=== PATIENT | female | born 1960 | race Caucasian/White ===

== ENCOUNTER 2017-01-24 04:33 | Emergency (ER) | payer MEDICARE, MEDICAID ==
[~2017-01-24] VITALS: Ht 170.2 cm; Wt 83.3 kg
[~2017-01-24 04:33] MED LIST: ARIP10TA13 PO; ATIVAN; ESCI20TA10 PO; LEXAPRO; LORA-445 PO; OXYB5TAB7 PO; TRAZ50TA18 PO
[2017-01-24 04:35] VITALS: BP 115/74
[2017-01-24 05:43] LABS: BLOOD UREA NITROGEN 18 mg/dL (7-18)
[2017-01-24] MEDS ORDERED: FLUCONAZOLE 100 MG TABLET PO ONE (06:00)
== END 2017-01-24 07:22 | disposition home or self-care (01) ==
LOC: ED 04:38
DX: N30.00 Acute cystitis without hematuria (principal); B37.3 Candidiasis of vulva and vagina; Z90.710 Acquired absence of both cervix and uterus
CPT/HCPCS: 36415; 80048; 81001; 82040; 85025; 87077; 87086; 87186; 87210; 87491; 87591; 87808

== ENCOUNTER 2017-01-31 11:30 | Inpatient (IN) | payer MEDICARE, MEDICAID ==
[~2017-01-31] VITALS: Ht 170.2 cm; Wt 88.7 kg
[2017-01-31] MEDS ORDERED: SODIUM CHLORIDE 0.9% 1,000ML IVBOLUS ONE (12:30)
[2017-01-31] MEDS ORDERED: VANCOMYCIN PER PHARMACY MC ONE (12:30)
[2017-01-31] MEDS ORDERED: SODIUM CHLORIDE FLUSH 10ML SYR IVF ONE (12:30)
[2017-01-31] MEDS ORDERED: VANCOMYCIN 1,700 MG in SODIUM CHLORIDE 0.9% 250 ML IV ONE (12:32)
[2017-01-31 13:00] LABS: BLOOD UREA NITROGEN 10 mg/dL (7-18)
[2017-01-31] MEDS ORDERED: PHARMACOKINETIC CONSULTATION MC ONE (13:00)
[2017-01-31 13:01] LABS: ASPARTATE AMINO TRANSFERASE 17 U/L (15-37)
[2017-01-31] MEDS ORDERED: SODIUM CHLORIDE FLUSH 10ML SYR IVF PRN (14:00)
[2017-01-31] MEDS ORDERED: LORazepam 0.5MG TABLET PO PRN (14:30)
[2017-01-31] MEDS ORDERED: NS + 20MEQ KCL 1,000 ML IV SCH (14:51)
[2017-01-31 14:56] VITALS: BP 126/76
[2017-01-31] MEDS ORDERED: DOCUSATE 100 MG CAPSULE PO PRN (15:00)
[2017-01-31] MEDS ORDERED: VANCOMYCIN PER PHARMACY MC PRN (15:00)
[2017-01-31] MEDS ORDERED: ACETAMINOPHEN 325 MG TABLET PO PRN (15:00)
[2017-01-31] MEDS ORDERED: TEMAZEPAM 15 MG CAPSULE PO PRN (15:00)
[2017-01-31] MEDS ORDERED: CEFTAROLINE 600 MG in SODIUM CHLORIDE 0.9% 100 ML IV SCH (15:00)
[2017-01-31] MEDS ORDERED: hydrALAzine 20 MG/ML, 1ML IVPush PRN (15:00)
[2017-01-31] MEDS ORDERED: ONDANSETRON 2MG/ML, 2ML IVPush PRN (15:00)
[2017-01-31] MEDS ORDERED: HYDROcodone/APAP 5/325 TABLET PO PRN (15:00)
[2017-01-31] MEDS ORDERED: POTASSIUM CHLORIDE 20 MEQ TAB.ER.PRT PO ONE (15:00)
[2017-01-31] MEDS ORDERED: LORazepam 1MG TABLET PO PRN (15:00)
[2017-01-31] MEDS ORDERED: PHARMACOKINETIC MONITORING MC PRN (15:30)
[2017-01-31] MEDS: ENOXAPARIN 40 MG/0.4 ML SQ SCH (17:42)
[2017-01-31] MEDS: CEFTRIAXONE PMX 2GM/50ML 50 ML IVPB SCH (17:42)
[2017-01-31 19:29] VITALS: BP 115/69
[2017-01-31] MEDS: OXYBUTYNIN CHLORIDE 5 MG TABLET PO SCH (21:15)
[2017-01-31] MEDS: TRAZODONE 100MG TABLET PO SCH (21:15)
[2017-02-01] MEDS: VANCOMYCIN 1,600 MG in SODIUM CHLORIDE 0.9% 250 ML IV SCH ×2 (00:50→12:36)
[2017-02-01 02:45] VITALS: BP 112/75
[2017-02-01 06:46] VITALS: BP 107/70
[2017-02-01 07:31] LABS: ASPARTATE AMINO TRANSFERASE 14 U/L (15-37); BLOOD UREA NITROGEN 9 mg/dL (7-18)
[2017-02-01] MEDS: CITALOPRAM 20 MG TABLET PO SCH (09:00)
[2017-02-01] MEDS: ARIPIPRAZOLE 10 MG TABLET PO SCH (09:01)
[2017-02-01] MEDS: SILVER SULF. CRM 1% , 25GM TP SCH (09:02)
[2017-02-01] MEDS: OXYBUTYNIN CHLORIDE 5 MG TABLET PO SCH ×2 (09:02→20:04)
[2017-02-01 12:51] VITALS: BP 103/67
[2017-02-01] MEDS: ENOXAPARIN 40 MG/0.4 ML SQ SCH (18:00)
[2017-02-01] MEDS: CEFTRIAXONE PMX 2GM/50ML 50 ML IVPB SCH (18:04)
[2017-02-01 19:50] VITALS: BP 118/76
[2017-02-01] MEDS: TRAZODONE 100MG TABLET PO SCH (20:04)
[2017-02-02] MEDS: VANCOMYCIN 1,600 MG in SODIUM CHLORIDE 0.9% 250 ML IV SCH (00:37)
[2017-02-02 03:06] VITALS: BP 118/74
[2017-02-02 06:32] VITALS: BP 103/62
[2017-02-02] MEDS: SILVER SULF. CRM 1% , 25GM TP SCH (08:44)
[2017-02-02] MEDS: OXYBUTYNIN CHLORIDE 5 MG TABLET PO SCH (08:45)
[2017-02-02] MEDS: CITALOPRAM 20 MG TABLET PO SCH ×2 (08:45→08:46)
[2017-02-02] MEDS: ARIPIPRAZOLE 10 MG TABLET PO SCH (08:45)
[2017-02-02] MEDS ORDERED: AMOX1TAB64 PO ×2 (08:56→09:43)
[2017-02-02] MEDS ORDERED: SILV25CR4 TP ×2 (08:56→09:43)
[2017-02-02] MEDS ORDERED: ESCI20TA10 PO (08:56)
[2017-02-02] MEDS ORDERED: ARIP10TA13 PO (08:56)
[2017-02-02] MEDS ORDERED: CEPH-368 PO (14:59)
[2017-02-02] MEDS ORDERED: CLON0.5T PO (18:16)
[2017-02-02] MEDS ORDERED: TOPI50TA35 PO (18:16)
[2017-02-02] MEDS ORDERED: ZIPR80CA2 PO (18:16)
[2017-02-02] MEDS ORDERED: DIVA500T4 PO (18:16)
== END 2017-02-02 13:20 | disposition home or self-care (01) | DRG 602 ==
LOC: ED 12:53 → EDIP 13:39 → 3NE 14:46
PROVIDERS: ADMIT Hospitalist; ATTEND Hospitalist
DX: L03.115 Cellulitis of right lower limb (principal); G93.41 Metabolic encephalopathy; F31.9 Bipolar disorder, unspecified; E87.6 Hypokalemia; F20.9 Schizophrenia, unspecified; F22 Delusional disorders; F41.1 Generalized anxiety disorder; L55.9 Sunburn, unspecified; I50.9 Heart failure, unspecified; Z91.14 Patient's other noncompliance with medication regimen; Z88.8 Allergy status to other drugs, medicaments and biological substances; Z85.42 Personal history of malignant neoplasm of other parts of uterus; Z90.710 Acquired absence of both cervix and uterus
CPT/HCPCS: 36415; 71010; 80053; 83605; 83735; 83880; 84100; 84145; 84443; 85025; 87040; 93970; 96361; 96365; J0696; J3370; J3480; J7030; J7050

== ENCOUNTER 2017-02-02 16:14 | Observation (INO) | payer MEDICARE, MEDICAID ==
[~2017-02-02] VITALS: Ht 170.2 cm; Wt 88.7 kg
[~2017-02-02 16:14] MED LIST changes: +AMOX1TAB64 PO; +CEPH-368 PO; +SILV25CR4 TP
[2017-02-02] MEDS ORDERED: ZIPRASIDONE 20 MG INJ IM ONE ×2 (17:19→17:30)
[2017-02-02 17:59] LABS: BLOOD UREA NITROGEN 15 mg/dL (7-18)
[2017-02-02 18:01] LABS: ACETAMINOPHEN < 2 mcg/mL (10-30)
[2017-02-02] MEDS ORDERED: ZIPR80CA2 PO (18:16)
[2017-02-02] MEDS ORDERED: CLON0.5T PO (18:16)
[2017-02-02] MEDS ORDERED: TOPI50TA35 PO (18:16)
[2017-02-02] MEDS ORDERED: DIVA500T4 PO (18:16)
[2017-02-02 19:08] LABS: DAU SCREEN DISCLAIMER
[2017-02-02] MEDS ORDERED: DIPHENHYDRAMINE 50 MG CAPSULE PO PRN (20:30)
[2017-02-02] MEDS ORDERED: ACETAMINOPHEN 325 MG TABLET PO PRN (20:30)
[2017-02-02] MEDS ORDERED: LORazepam 2 MG/ML, 1ML IM PRN (20:30)
[2017-02-02] MEDS ORDERED: DOCUSATE 100 MG CAPSULE PO PRN (20:30)
[2017-02-02] MEDS ORDERED: BENZTROPINE 1 MG TABLET PO PRN (20:30)
[2017-02-02] MEDS ORDERED: ONDANSETRON ODT 4 MG PO PRN (20:30)
[2017-02-02] MEDS ORDERED: DIPHENHYDRAMINE 50 MG/ML, 1ML IM PRN (20:30)
[2017-02-02 21:10] VITALS: BP 122/73
[2017-02-02] MEDS: DIVALPROEX 500 MG TAB.ER.24H PO SCH (21:55)
[2017-02-02] MEDS: TOPIRAMATE 25 MG TABLET PO SCH (21:56)
[2017-02-02] MEDS: ZIPRASIDONE 40MG CAPSULE PO SCH (22:03)
[2017-02-03 07:13] VITALS: BP 121/78
[2017-02-03] MEDS: TOPIRAMATE 25 MG TABLET PO SCH ×2 (08:47→20:07)
[2017-02-03] MEDS: ZIPRASIDONE 40MG CAPSULE PO SCH ×2 (08:48→20:04)
[2017-02-03] MEDS: DIVALPROEX 500 MG TAB.ER.24H PO SCH ×2 (08:48→20:01)
[2017-02-03] MEDS ORDERED: AMOXICILLIN/CLAV 875-125MG TABLET PO SCH (12:00)
[2017-02-03 19:29] VITALS: BP 124/78
== END 2017-02-03 23:39 ==
LOC: ED 18:27 → EDIP 20:20 → 3E 21:06
PROVIDERS: ADMIT Internal Medicine; ATTEND Internal Medicine
DX: F23 Brief psychotic disorder (principal); S90.921A Unspecified superficial injury of right foot, initial encounter; L03.115 Cellulitis of right lower limb; F22 Delusional disorders; F31.9 Bipolar disorder, unspecified; R60.0 Localized edema; X58.XXXA Exposure to other specified factors, initial encounter; Y93.89 Activity, other specified; Y92.89 Other specified places as the place of occurrence of the external cause; Y99.8 Other external cause status
CPT/HCPCS: 36415; 80048; 80307; 80329; 82040; 85025; 99285; G0378; G0480

== ENCOUNTER 2017-05-02 00:15 | Observation (INO) | payer MEDICARE, MEDICAID ==
[~2017-05-02] VITALS: Ht 160 cm; Wt 79.0 kg
[~2017-05-02 00:15] MED LIST changes: -ARIP10TA13 PO; +ARIP10TA33 PO; +CLON0.5T PO; +DIVA500T4 PO; -SILV25CR4 TP; +SILV25CR6 TP; +TOPI50TA35 PO; +ZIPR80CA2 PO
[2017-05-02] MEDS ORDERED: ZIPRASIDONE 20 MG INJ IM ONE (00:52)
[2017-05-02] MEDS: ZIPRASIDONE 20 MG INJ IM PRN (01:02)
[2017-05-02 01:03] LABS: HEMATOCRIT 43.6 % (34.6-47.8); HEMOGLOBIN 14.7 g/dL (11.7-16.4); WHITE BLOOD COUNT 7.9 x10^3/uL (3.4-10)
[2017-05-02 01:15] LABS: ASPARTATE AMINO TRANSFERASE 33 U/L (15-37); BLOOD UREA NITROGEN 18 mg/dL (7-18)
[2017-05-02 01:26] LABS: ACETAMINOPHEN < 2 mcg/mL (10-30)
[2017-05-02 01:31] LABS: DAU SCREEN DISCLAIMER
[2017-05-02 01:51] LABS: PATH.CAST-FLAG NOT PRESENT; SPERM-FLAG NOT PRESENT; SRC-FLAG NOT PRESENT; XTAL-FLAG NOT PRESENT; YLC-FLAG NOT PRESENT
[2017-05-02] MEDS ORDERED: NITROFURANTOIN (MACROBID) 100 MG CAPSULE PO ONE (03:30)
[2017-05-02] MEDS ORDERED: DOCUSATE 100 MG CAPSULE PO PRN (05:30)
[2017-05-02] MEDS ORDERED: ONDANSETRON ODT 4 MG PO PRN (05:30)
[2017-05-02] MEDS ORDERED: ZIPRASIDONE 20 MG INJ IM PRN (05:30)
[2017-05-02] MEDS ORDERED: ACETAMINOPHEN 325 MG TABLET PO PRN (05:30)
[2017-05-02 06:19] VITALS: BP 108/71
[2017-05-02] MEDS ORDERED: DIVALPROEX 500 MG TAB.ER.24H PO SCH (09:00)
[2017-05-02] MEDS ORDERED: ZIPRASIDONE 40MG CAPSULE PO SCH (09:00)
[2017-05-02] MEDS ORDERED: TOPIRAMATE 25 MG TABLET PO SCH (09:00)
[2017-05-02] MEDS: NITROFURANTOIN (MACROBID) 100 MG CAPSULE PO SCH ×2 (09:21→21:45)
[2017-05-02 19:35] VITALS: BP 107/63
[2017-05-03] MEDS: NITROFURANTOIN (MACROBID) 100 MG CAPSULE PO SCH ×2 (07:26→19:56)
[2017-05-03] MEDS: ZIPRASIDONE 20MG CAPSULE PO PRN (07:27)
[2017-05-03 07:28] VITALS: BP 109/75
[2017-05-03 19:08] VITALS: BP 113/76
[2017-05-03] MEDS: DIVALPROEX 500 MG TAB.ER.24H PO SCH (19:56)
[2017-05-04] MEDS: LORazepam 1MG TABLET PO PRN (02:23)
[2017-05-04 08:10] VITALS: BP 120/81
[2017-05-04] MEDS: NITROFURANTOIN (MACROBID) 100 MG CAPSULE PO SCH ×2 (08:18→20:22)
[2017-05-04] MEDS: DIVALPROEX 500 MG TAB.ER.24H PO SCH (20:22)
[2017-05-05 07:46] VITALS: BP 113/69
[2017-05-05 19:22] VITALS: BP 130/85
[2017-05-05] MEDS: DIVALPROEX 500 MG TAB.ER.24H PO SCH ×2 (21:00→22:57)
[2017-05-06 07:24] VITALS: BP 114/80
[2017-05-06] MEDS ORDERED: ZIPRASIDONE 20 MG INJ IM PRN (19:00)
[2017-05-06] MEDS ORDERED: ONDANSETRON ODT 4 MG PO PRN (19:00)
[2017-05-06] MEDS ORDERED: DOCUSATE 100 MG CAPSULE PO PRN (19:00)
[2017-05-06] MEDS ORDERED: ACETAMINOPHEN 325 MG TABLET PO PRN (19:00)
[2017-05-06 19:22] VITALS: BP 129/89
[2017-05-06] MEDS: DIVALPROEX 500 MG TAB.ER.24H PO SCH (21:48)
[2017-05-07 08:09] VITALS: BP 112/63
[2017-05-07] MEDS: ZIPRASIDONE 20MG CAPSULE PO PRN (08:38)
[2017-05-07] MEDS: LORazepam 1MG TABLET PO PRN (08:39)
[2017-05-08 01:38] VITALS: BP 125/83
[2017-05-08 07:30] VITALS: BP 132/84
[2017-05-08 19:33] VITALS: BP 113/79
[2017-05-08] MEDS ORDERED: ARIPIPRAZOLE 10 MG TABLET PO SCH (21:00)
[2017-05-09 02:32] VITALS: BP 104/74
[2017-05-09] MEDS: LORazepam 1MG TABLET PO PRN (05:24)
[2017-05-09 08:00] VITALS: BP 121/80
[2017-05-09] MEDS ORDERED: DIVALPROEX 500 MG TAB.ER.24H PO SCH (09:00)
[2017-05-09] MEDS ORDERED: ARIP10TA33 PO (10:32)
[2017-05-09] MEDS ORDERED: DIVA500T4 PO (10:32)
== END 2017-05-09 10:30 ==
LOC: ED 01:24 → EDIP 03:37 → INTOOBSV 03:37 → 3E 06:04
PROVIDERS: ADMIT Family Medicine; ATTEND Internal Medicine
DX: F23 Brief psychotic disorder (principal); F25.0 Schizoaffective disorder, bipolar type; N20.0 Calculus of kidney; F20.9 Schizophrenia, unspecified; R62.7 Adult failure to thrive; Z85.42 Personal history of malignant neoplasm of other parts of uterus; Z90.710 Acquired absence of both cervix and uterus; Z91.83 Wandering in diseases classified elsewhere
CPT/HCPCS: 36415; 74176; 80053; 80164; 80307; 80329; 81001; 84702; 84703; 85025; 87086; 96372; 99285; G0378; J3486; G0479; G0480

== ENCOUNTER 2017-11-11 19:26 | Emergency (ER) | payer MEDICARE, MEDICAID ==
[~2017-11-11] VITALS: Ht 170.2 cm; Wt 90.4 kg
[2017-11-11 19:27] VITALS: BP 119/78
[2017-11-11 20:37] LABS: BASOPHILS # (AUTO) 0.06 x10^3/uL (0-0.1); BASOPHILS % (AUTO) 1 % (0-1); EOSINOPHILS # (AUTO) 0.16 x10^3/uL (0-0.4); EOSINOPHILS % (AUTO) 2 % (1-7); LYMPHOCYTES # (AUTO) 2.37 x10^3/uL (1-3.4); LYMPHOCYTES % (AUTO) 33 % (22-44); MD NO; MEAN CORPUSCULAR HEMOGLOBIN 30.5 pg (27.0-34.8); MEAN CORPUSCULAR HGB CONC 33.8 g/dL (32.4-35.8); MEAN CORPUSCULAR VOLUME 90.3 fL (80-100); MEAN PLATELET VOLUME 6.8 fL (7.4-10.4); MONOCYTES % (AUTO) 10 % (2-9); NEUTROPHILS # (AUTO) 3.82 x10^3/uL (1.8-6.8); NEUTROPHILS % (AUTO) 54 % (42-75); PLATELET COUNT 312 x10^3/uL (130-400); RED BLOOD COUNT 4.41 x10^6/uL (3.82-5.3); RED CELL DISTRIBUTION WIDTH 14.6 % (9.6-15.2)
[2017-11-11 20:45] LABS: ALANINE AMINOTRANSFERASE 25 U/L (12-78); ALBUMIN 3.3 g/dL (3.4-5.0); ANION GAP 6 mmol/L (5-15); CALCIUM 8.4 mg/dL (8.5-10.1); CHLORIDE 109 mmol/L (98-107); CREATININE 0.73 mg/dL (0.55-1.02)
[2017-11-11 20:50] LABS: ALKALINE PHOSPHATASE 94 U/L (45-117); BILIRUBIN,TOTAL 0.3 mg/dL (0.2-1.0); TOTAL PROTEIN 6.8 g/dL (6.4-8.2)
[2017-11-11 21:05] LABS: MICROSCOPIC NOT IND
[2017-11-11 21:09] LABS: CULTURE INDICATED? NO
== END 2017-11-11 21:58 | disposition home or self-care (01) ==
LOC: ED 21:56
DX: R14.0 Abdominal distension (gaseous) (principal); Z90.710 Acquired absence of both cervix and uterus
CPT/HCPCS: 36415; 76700; 80053; 81003; 83690; 84703; 85025; 99285

== ENCOUNTER 2018-11-16 15:14 | Emergency (ER) | payer MEDICARE, MEDICAID ==
[~2018-11-16] VITALS: Ht 170.2 cm; Wt 84.0 kg
[~2018-11-16 15:14] MED LIST changes: +HALO50AM4 IM; +HYDR25CA PO; +LORA-446 PO; +PALI156D IM; -TRAZ50TA18 PO; +TRAZ50TA66 PO
--- NOTE | 2018-11-16 15:20 | NUR ---
THIS IS A 57 YO FEMALE BIB [facility] FROM [facility] FOR HI THOUGHTS AGAINST HER NEIGHBOR WHO HAD AN AFFAIR WITH HER EX. PT STATES "EVERY FEW YEARS I NEED MY MEDICATIONS ADJUSTED FOR MY MENTAL ILLNESS". PT PLEASANT AND COOPERATIVE AT THIS TIME. BELONGINGS PLACED IN ONE BAG AND LOCKED IN LOCKER. PT ALSO HAS A CANE. PT AO X 4. SKIN. PWD RESP EVEN UNLABORED. PT DENIES ANY MEDICAL COMPLAINTS. GARAGE DOORS DOWN ON WORTHY. SITTER AT DOORSIDE.
[2018-11-16] MEDS ORDERED: DIPH25CA61 PO ×2 (16:13→16:15)
[2018-11-16] MEDS ORDERED: SERT50TA PO (16:13)
[2018-11-16] MEDS ORDERED: HALO50AM4 IM (16:15)
--- NOTE | 2018-11-16 16:31 | NUR ---
Note undone in [facility] - 11/16/18 at 1632 by MARILIN patient asleepy on gurney. devries provided. Addendum: 11/16/18 at 1631 by MARILIN Amendment [email or web address] in [facility] - 11/16/18 at 1632 by PAULCCO patient asleep on gurney. devries provided.
[2018-11-16 16:33] VITALS: BP 93/55
[2018-11-16 16:39] LABS: BASOPHILS # (AUTO) 0.01 x10^3/uL (0-0.1); BASOPHILS % (AUTO) 0 % (0-1); EOSINOPHILS # (AUTO) 0.05 x10^3/uL (0-0.4); EOSINOPHILS % (AUTO) 1 % (1-7); LYMPHOCYTES # (AUTO) 1.78 x10^3/uL (1-3.4); LYMPHOCYTES % (AUTO) 28 % (22-44); MD NO; MEAN CORPUSCULAR HEMOGLOBIN 29.8 pg (27.0-34.8); MEAN CORPUSCULAR HGB CONC 33.6 g/dL (32.4-35.8); MEAN CORPUSCULAR VOLUME 88.7 fL (80-100); MEAN PLATELET VOLUME 6.9 fL (7.4-10.4); MONOCYTES # (AUTO) 0.55 x10^3/uL (0.2-0.8); MONOCYTES % (AUTO) 9 % (2-9); NEUTROPHILS # (AUTO) 4.04 x10^3/uL (1.8-6.8); NEUTROPHILS % (AUTO) 63 % (42-75); PLATELET COUNT 365 x10^3/uL (130-400); RED BLOOD COUNT 4.85 x10^6/uL (3.82-5.3); RED CELL DISTRIBUTION WIDTH 13.7 % (9.6-15.2)
[2018-11-16 16:45] LABS: ALANINE AMINOTRANSFERASE 26 U/L (12-78); ALBUMIN 3.8 g/dL (3.4-5.0); ANION GAP 6 mmol/L (5-15); CHLORIDE 108 mmol/L (98-107); CREATININE 0.68 mg/dL (0.55-1.02)
[2018-11-16 16:47] LABS: ALKALINE PHOSPHATASE 97 U/L (45-117); BILIRUBIN,TOTAL 0.3 mg/dL (0.2-1.0); TOTAL PROTEIN 7.5 g/dL (6.4-8.2)
[2018-11-16 16:51] LABS: ACETAMINOPHEN < 2 mcg/mL (10-30); SALICYLATE LEVEL < 1.7 mg/dL (2.8-20.0)
[2018-11-16 17:16] LABS: AMPHETAMINE SCREEN, URINE Negative (Negative); BARBITURATE SCREEN, URINE Negative (Negative); BENZODIAZEPINE SCREEN, URINE Negative (Negative); CANNABINOID SCREEN, URINE Negative (Negative); COCAINE SCREEN, URINE Negative (Negative); METHADONE SCREEN, URINE Negative (Negative); OPIATE SCREEN, URINE Negative (Negative)
--- NOTE | 2018-11-16 17:28 | NUR ---
URINE SAMPLE OBTAINED AND SENT TO LAB. PT PROVIDED WITH MEAL TRAY. PT DENIES NEEDS AT THIS TIME. ROBOT SET UP IN ROOM. PT AWARE THAT WE ARE WAITING FOR TELEPSYCH CONSULT. PT DENIES OTHER NEEDS AT THIS TIME. CALL LIGHT WITHIN REACH. WILL CONT TO MONITOR PT.
--- NOTE | 2018-11-16 18:30 | NUR ---
PT CURRENTLY RESTING IN ROOM. PT PROVIDED WITH WATER. GARAGE DOORS DOWN IN ROOM. SITTER AT DOORSIDE. BELONGINGS IN LOCKED LOCKER. PT AWARE WE ARE WAITING FOR TELEPSYCH CONSULT. PT DENIES OTHER NEEDS AT THIS TIME. WILL CONT TO MONITOR PT.
--- NOTE | 2018-11-16 18:53 | NUR ---
PT REPORT FROM CECI MAKI. THIS RN TO ASSUME CARE OF PT. AWAITING TELEPSYCH.
--- NOTE | 2018-11-16 18:58 | NUR ---
REPORT TO GLYNN VARGAS WHO ASSUMED CARE OF PT.
--- NOTE | 2018-11-16 20:03 | NUR ---
SOC UPDATED. TELEPSYCH INITIATED.
--- NOTE | 2018-11-16 20:32 | NUR ---
PT ASKED FOR BENADRYL TO "CALM MY NERVES". MD NOTIFIED. MD STATES TO WAIT UNTIL SOC OFFICIAL REPORT FOR FURTHER POC ORDERS.
[2018-11-16] MEDS ORDERED: DIPHENHYDRAMINE 25 MG CAPSULE ONE (20:53)
--- NOTE | 2018-11-16 20:56 | NUR ---
PT GIVEN OJ AND BENADRYL PER MAR, AND REQUEST. NO OTHER IMMEDIATE NEEDS.
[2018-11-16] MEDS ORDERED: DIPHENHYDRAMINE 25 MG CAPSULE PO ONE (21:00)
--- NOTE | 2018-11-16 21:16 | NUR ---
GIVEN ANDRY PER REQUEST. HOSPITALIST AT BEDSIDE.
[2018-11-16] MEDS ORDERED: LORazepam 1MG TABLET PO ONE (21:30)
[2018-11-16] MEDS ORDERED: ESCITALOPRAM 10MG TABLET PO SCH ×2 (21:30)
[2018-11-16] MEDS ORDERED: ACETAMINOPHEN 325 MG TABLET PO PRN (21:30)
[2018-11-16] MEDS ORDERED: BISACODYL 10 MG SUPP PR PRN (21:30)
[2018-11-16] MEDS ORDERED: LORazepam 1MG TABLET PO PRN (21:30)
[2018-11-16] MEDS ORDERED: ONDANSETRON ODT 4 MG PO PRN (21:30)
[2018-11-16] MEDS ORDERED: POLYETHYLENE GLYCOL 17 GM PACKET PO PRN (21:30)
[2018-11-16] MEDS ORDERED: LORazepam 1MG TABLET ONE (21:33)
--- NOTE | 2018-11-16 22:23 | NUR ---
Pt has been accepted to [facility]E by psychiatrist.
[2018-11-17] MEDS ORDERED: SENNA/DOCUSATE TABLET PO SCH (09:00)
[2018-11-17] MEDS ORDERED: HYDROXYZINE PAMOATE 25MG CAP PO SCH (09:00)
[2018-11-17] MEDS ORDERED: DIPHENHYDRAMINE 25 MG CAPSULE PO SCH (21:00)
== END 2018-11-16 22:38 | disposition home or self-care (01) ==
LOC: ED 15:28 → UNDOADMIN 21:27 → EDIP 21:27 → ED 22:38
DX: F20.89 Other schizophrenia (principal); Z90.710 Acquired absence of both cervix and uterus; F31.9 Bipolar disorder, unspecified
CPT/HCPCS: 36415; 80053; 80307; 80329; 85025; 99284; Q0163; G0480

== ENCOUNTER 2018-11-16 22:10 | Inpatient (IN) | payer MEDICARE, MEDICAID ==
[~2018-11-16] VITALS: Ht 165.1 cm; Wt 84.9 kg
[~2018-11-16 22:10] MED LIST changes: +DIPH25CA61 PO; +SERT50TA PO
[2018-11-16 22:57] VITALS: BP_SYST 103; BP_SYST 118; BP_SYST 95; BP_DIAS 64; BP_DIAS 70; BP_DIAS 75
[2018-11-16 23:00] VITALS: BP 103/70
[2018-11-16] MEDS ORDERED: ONDANSETRON ODT 4 MG PO PRN (23:00)
[2018-11-16] MEDS ORDERED: POLYETHYLENE GLYCOL 17 GM PACKET PO PRN (23:00)
[2018-11-16] MEDS ORDERED: DOCUSATE 100 MG CAPSULE PO PRN (23:00)
[2018-11-16] MEDS ORDERED: BISACODYL 10 MG SUPP PR PRN (23:00)
[2018-11-16 23:40] LABS: CHOLESTEROL, TOTAL 240 mg/dL (140-239); TRIGLYCERIDES 95 mg/dL (50-200); VLDL CHOLESTEROL 19 mg/dL (0-25)
[2018-11-16 23:43] LABS: CHOL/HDL RATIO 3.7; FREE T4 (FREE THYROXINE) 1.04 ng/dL (0.76-1.46); HDL CHOL % 27 % (28-40); HDL CHOLESTEROL (DIRECT) 65 mg/dL (40-60); LDL CHOLESTEROL,CALCULATED 156 mg/dL (54-169); LDL/HDL RATIO 2.4 (0.5-3.0)
[2018-11-17 00:44] LABS: MICROSCOPIC AUTO
[2018-11-17 00:52] LABS: CULTURE INDICATED? NO
[2018-11-17 05:15] LABS: HCT (SEDRATE) 40.5 % (34.6-47.8)
[2018-11-17 07:16] VITALS: BP 91/60
[2018-11-17] MEDS ORDERED: HYDROXYZINE PAMOATE 25MG CAP PO SCH (09:00)
[2018-11-17] MEDS: HYDROXYZINE PAMOATE 25MG CAP PO SCH ×2 (09:00→09:03)
[2018-11-17] MEDS ORDERED: LORazepam 1MG TABLET ONE (09:00)
[2018-11-17 09:18] VITALS: BP 108/67
[2018-11-17 19:49] VITALS: BP 105/69
[2018-11-17] MEDS: ESCITALOPRAM 10MG TABLET PO SCH (20:09)
[2018-11-17] MEDS: DIPHENHYDRAMINE 50 MG CAPSULE PO SCH (20:09)
[2018-11-18 07:25] VITALS: BP 97/67
[2018-11-18] MEDS: HYDROXYZINE PAMOATE 25MG CAP PO SCH (09:00)
[2018-11-18] MEDS ORDERED: LORazepam 1MG TABLET ONE (09:09)
[2018-11-18] MEDS: LORazepam 1MG TABLET PO PRN ×2 (09:11→16:40)
[2018-11-18 19:25] VITALS: BP 119/75
[2018-11-18] MEDS: DIPHENHYDRAMINE 50 MG CAPSULE PO SCH (20:20)
[2018-11-18] MEDS: ESCITALOPRAM 10MG TABLET PO SCH (20:20)
[2018-11-19 07:35] VITALS: BP 100/66
[2018-11-19] MEDS: HYDROXYZINE PAMOATE 25MG CAP PO SCH ×2 (08:51→08:57)
[2018-11-19] MEDS: LORazepam 1MG TABLET PO PRN (10:01)
[2018-11-19] MEDS: ACETAMINOPHEN 325 MG TABLET PO PRN (14:50)
[2018-11-19 19:46] VITALS: BP 113/76
[2018-11-19] MEDS: ESCITALOPRAM 10MG TABLET PO SCH (20:31)
[2018-11-19] MEDS: DIPHENHYDRAMINE 50 MG CAPSULE PO SCH (20:31)
[2018-11-20 07:18] VITALS: BP 111/75
[2018-11-20] MEDS: HYDROXYZINE PAMOATE 25MG CAP PO SCH (08:21)
[2018-11-20 19:21] VITALS: BP 111/77
[2018-11-20] MEDS: DIPHENHYDRAMINE 50 MG CAPSULE PO SCH (20:02)
[2018-11-20] MEDS: ESCITALOPRAM 10MG TABLET PO SCH (20:02)
[2018-11-21 07:13] VITALS: BP 102/77
[2018-11-21] MEDS: HYDROXYZINE PAMOATE 25MG CAP PO SCH (08:33)
[2018-11-21] MEDS: LORazepam 1MG TABLET PO PRN ×3 (14:22→21:13)
[2018-11-21] MEDS: ACETAMINOPHEN 325 MG TABLET PO PRN (17:51)
[2018-11-21 19:28] VITALS: BP 107/61
[2018-11-21] MEDS: DIPHENHYDRAMINE 50 MG CAPSULE PO SCH (20:01)
[2018-11-22 07:31] VITALS: BP 102/68
[2018-11-22] MEDS: HYDROXYZINE PAMOATE 25MG CAP PO SCH (08:18)
[2018-11-22] MEDS: LORazepam 1MG TABLET PO PRN ×2 (08:28→14:29)
[2018-11-22] MEDS: DIPHENHYDRAMINE 50 MG CAPSULE PO SCH (20:02)
[2018-11-22] MEDS ORDERED: SERTRALINE 50MG TABLET PO SCH (21:00)
[2018-11-23 07:20] VITALS: BP 107/72
[2018-11-23] MEDS: LORazepam 1MG TABLET PO PRN (08:22)
[2018-11-23] MEDS: HYDROXYZINE PAMOATE 25MG CAP PO SCH (08:22)
== END 2018-11-23 10:15 | disposition home or self-care (01) | DRG 885 ==
LOC: 3E 22:47
PROVIDERS: ADMIT Psychiatry & Neurology Psychosomatic Medicine; ATTEND Psychiatry & Neurology Psychosomatic Medicine
DX: F25.0 Schizoaffective disorder, bipolar type (principal); R45.851 Suicidal ideations; R45.850 Homicidal ideations; R62.7 Adult failure to thrive; F41.1 Generalized anxiety disorder; G47.00 Insomnia, unspecified; Z79.899 Other long term (current) drug therapy; Z85.42 Personal history of malignant neoplasm of other parts of uterus; Z87.442 Personal history of urinary calculi; Z90.6 Acquired absence of other parts of urinary tract; Z90.710 Acquired absence of both cervix and uterus; Z88.0 Allergy status to penicillin; Z88.5 Allergy status to narcotic agent; Z88.8 Allergy status to other drugs, medicaments and biological substances
CPT/HCPCS: 36415; 71045; 80061; 81001; 82140; 82607; 84439; 84443; 84703; 85651; 86480; 86592; 93005; Q0177

== ENCOUNTER 2018-12-14 16:46 | Emergency (ER) | payer MEDICARE, MEDICAID ==
[~2018-12-14] VITALS: Ht 170.2 cm; Wt 86.4 kg
[~2018-12-14 16:46] MED LIST changes: +SILV25CR30 TP; -SILV25CR6 TP
--- NOTE | 2018-12-14 17:33 | NUR ---
BIB [facility] PT REPORTS DEHYDRATED ABD PAIN AND DISTENTION STS "I HAVE NOT HAD ANY FLUIDS IN YEARS" NOTING FLIGHT OF IDEAS
--- NOTE | 2018-12-14 17:44 | NUR ---
REFUSING LABS WANTS IV AND FLUIDS
[2018-12-14 17:57] LABS: MICROSCOPIC NOT IND
--- NOTE | 2018-12-14 17:58 | NUR ---
NOW AGREES TO LAB DRAW PT ADVISED IT WILL TELL HOW DEHYDRATED SHE MAY BE INFORMATION FOR WHEN ERP COMES TO SEE HERE
[2018-12-14 18:00] LABS: BASOPHILS # (AUTO) 0.02 x10^3/uL (0-0.1); BASOPHILS % (AUTO) 0 % (0-1); EOSINOPHILS # (AUTO) 0.05 x10^3/uL (0-0.4); EOSINOPHILS % (AUTO) 1 % (1-7); LYMPHOCYTES # (AUTO) 1.81 x10^3/uL (1-3.4); LYMPHOCYTES % (AUTO) 23 % (22-44); MD NO; MEAN CORPUSCULAR HEMOGLOBIN 30.7 pg (27.0-34.8); MEAN CORPUSCULAR HGB CONC 33.3 g/dL (32.4-35.8); MEAN CORPUSCULAR VOLUME 92.4 fL (80-100); MEAN PLATELET VOLUME 6.9 fL (7.4-10.4); MONOCYTES # (AUTO) 0.76 x10^3/uL (0.2-0.8); MONOCYTES % (AUTO) 10 % (2-9); NEUTROPHILS # (AUTO) 5.14 x10^3/uL (1.8-6.8); NEUTROPHILS % (AUTO) 66 % (42-75); PLATELET COUNT 301 x10^3/uL (130-400); RED BLOOD COUNT 4.21 x10^6/uL (3.82-5.3); RED CELL DISTRIBUTION WIDTH 13.8 % (9.6-15.2)
[2018-12-14 18:02] LABS: CULTURE INDICATED? NO
[2018-12-14 18:07] LABS: ALANINE AMINOTRANSFERASE 19 U/L (12-78); ALBUMIN 3.2 g/dL (3.4-5.0); ANION GAP 6 mmol/L (5-15); CALCIUM 8.6 mg/dL (8.5-10.1); CHLORIDE 109 mmol/L (98-107)
[2018-12-14 18:10] LABS: ALKALINE PHOSPHATASE 93 U/L (45-117); BILIRUBIN,TOTAL 0.3 mg/dL (0.2-1.0); CREATININE 0.68 mg/dL (0.55-1.02); TOTAL PROTEIN 6.5 g/dL (6.4-8.2)
--- NOTE | 2018-12-14 18:46 | NUR ---
CALLED SW FOR CONSULT
--- NOTE | 2018-12-14 19:22 | NUR ---
PT REPORT SHE HAS AN APPOINTMENT WITH DR JEROME ON NEXT MON AND HAS MEDS TO GET HER THRU TILL THEN
[2018-12-14 19:24] VITALS: BP 132/84
== END 2018-12-14 19:26 | disposition home or self-care (01) ==
LOC: ED 17:32
DX: F29 Unspecified psychosis not due to a substance or known physiological condition (principal); F31.9 Bipolar disorder, unspecified; R10.84 Generalized abdominal pain; I50.9 Heart failure, unspecified; F20.9 Schizophrenia, unspecified; Z90.710 Acquired absence of both cervix and uterus
CPT/HCPCS: 36415; 74021; 80053; 81003; 85025; 99284

== ENCOUNTER 2018-12-18 17:22 | Emergency (ER) | payer MEDICARE, MEDICAID ==
[~2018-12-18] VITALS: Ht 170.2 cm; Wt 84.9 kg
[2018-12-18 17:29] VITALS: BP 119/81
[2018-12-18 18:55] LABS: ALANINE AMINOTRANSFERASE 23 U/L (12-78); ALBUMIN 4.1 g/dL (3.4-5.0); ANION GAP 8 mmol/L (5-15); CALCIUM 8.9 mg/dL (8.5-10.1); CHLORIDE 109 mmol/L (98-107); CREATININE 0.72 mg/dL (0.55-1.02); SALICYLATE LEVEL 1.8 mg/dL (2.8-20.0)
[2018-12-18 19:04] LABS: ALKALINE PHOSPHATASE 110 U/L (45-117); BILIRUBIN,TOTAL 0.3 mg/dL (0.2-1.0); TOTAL PROTEIN 8.2 g/dL (6.4-8.2)
--- NOTE | 2018-12-18 19:04 | NUR ---
ALL BELONGINGS SECURED IN 1 BAG AND LOCKED IN SECURED CABINET. PT RESTING. JUICE AND GRAHM CRACKERS GIVEN. DINNER TRAY ORDERED. URINE COLLECTED AND SENT TO LAB. SBAR HAND-OFF GIVEN TO GLYNN GIMENEZ.
[2018-12-18 19:05] LABS: ACETAMINOPHEN < 2 mcg/mL (10-30)
--- NOTE | 2018-12-18 19:11 | NUR ---
Note [email or web address] in EDM - 12/18/18 at 1913 by SINA RECEIVED BS REPORT FROM GLYNN BOYLE TO ASSUME CARE OF PT. PT. RESTING ON GURNEY WITH ALL MONITORS IN PLACE. PT. EATING FROM DINNER TRAY THAT WAS PROVIDED BY [facility]. PT. HAS TV ON AND DENIES NEEDS AT THIS TIME. ROOM IS NOT SECURE MONITORS ARE BEING USED. SITTER IS IN WILKES IN DIRECT VIEW. PT. DENIES ANY NEEDS AT THIS TIME.
--- NOTE | 2018-12-18 19:13 | NUR ---
ABOVE NOT ENTERED ON WRONG PT.
[2018-12-18 19:14] LABS: AMPHETAMINE SCREEN, URINE Negative (Negative); BARBITURATE SCREEN, URINE Negative (Negative); BENZODIAZEPINE SCREEN, URINE Negative (Negative); CANNABINOID SCREEN, URINE Negative (Negative); COCAINE SCREEN, URINE Negative (Negative); METHADONE SCREEN, URINE Negative (Negative); OPIATE SCREEN, URINE Negative (Negative)
--- NOTE | 2018-12-18 19:16 | NUR ---
RECEIVED BS REPORT FROM GLYNN BOYLE TO ASSUME CARE OF PT. PT. RESTING ON GURNEY WITH NADN. PT. REQUESTING ROAST BEEF SANDWICH. POC DISCUSSED. ROOM IS SECURED AND SITTER IS IN WILKES. AWAITING ALL LABS IN ORDER TO INITIATE TELEPSYCH. PT. IS IN GOWN AND ALL BELONGINGS ARE SECURED IN LOCKER.
[2018-12-18 19:18] LABS: MD YES; MEAN CORPUSCULAR HEMOGLOBIN 30.7 pg (27.0-34.8); MEAN CORPUSCULAR HGB CONC 33.5 g/dL (32.4-35.8); MEAN CORPUSCULAR VOLUME 91.6 fL (80-100); MEAN PLATELET VOLUME 7.1 fL (7.4-10.4); PLATELET COUNT 364 x10^3/uL (130-400); RED BLOOD COUNT 5.09 x10^6/uL (3.82-5.3); RED CELL DISTRIBUTION WIDTH 14.2 % (9.6-15.2)
[2018-12-18 19:35] LABS: BASOPHILS # (AUTO) 0.03 x10^3/uL (0-0.1); BASOPHILS % (AUTO) 0 % (0-1); EOSINOPHILS # (AUTO) 0.05 x10^3/uL (0-0.4); EOSINOPHILS % (AUTO) 1 % (1-7); LYMPHOCYTES # (AUTO) 1.81 x10^3/uL (1-3.4); LYMPHOCYTES % (AUTO) 25 % (22-44); MONOCYTES # (AUTO) 0.63 x10^3/uL (0.2-0.8); MONOCYTES % (AUTO) 9 % (2-9); NEUTROPHILS # (AUTO) 4.67 x10^3/uL (1.8-6.8); NEUTROPHILS % (AUTO) 65 % (42-75)
--- NOTE | 2018-12-18 19:46 | NUR ---
PT. PROVIDED WITH SANDWICH AND CHIPS/DRINK PER REQUEST. DENIES OTHER NEEDS
--- NOTE | 2018-12-18 19:50 | NUR ---
TELEPSYCH PAGED AT THIS TIME
--- NOTE | 2018-12-18 20:01 | NUR ---
REPORT TO SARAH GARZA.
--- NOTE | 2018-12-18 20:27 | NUR ---
SOC EVAL HAS BEEN COMPLETED; AWAITING RECOMMENDATIONS AND FAX FROM
[2018-12-18] MEDS ORDERED: SERTRALINE 50MG TABLET ONE (20:55)
[2018-12-18] MEDS ORDERED: SERTRALINE 50MG TABLET PO ONE (21:00)
--- NOTE | 2018-12-18 21:04 | NUR ---
PT. MEDICATED PER MAR. DENIES OHTER NEEDS AT THIS TIME. SAFETY MEASURES MAINTAINED.
--- NOTE | 2018-12-18 21:10 | NUR ---
FAX RECEIVED FROM TELEPSYCH MD. PT. PROVIDED WITH BELONGINGS PT. TO D/C AND F/U WITH OUTPT. PSYCH. PT. AMBULATED TO BR WITH STEADY GAIT.
== END 2018-12-18 21:23 | disposition home or self-care (01) ==
LOC: ED 18:32
DX: F41.0 Panic disorder [episodic paroxysmal anxiety] (principal); F20.9 Schizophrenia, unspecified; I50.9 Heart failure, unspecified; F31.9 Bipolar disorder, unspecified; Z90.710 Acquired absence of both cervix and uterus
CPT/HCPCS: 36415; 80053; 80307; 85025; 99284

== ENCOUNTER 2019-01-27 09:42 | Emergency (ER) | payer MEDICARE, MEDICAID ==
[~2019-01-27] VITALS: Ht 170.2 cm; Wt 88.0 kg
--- NOTE | 2019-01-27 09:47 | NUR ---
CALLED PT IN LOBBY NA
--- NOTE | 2019-01-27 10:17 | NUR ---
SNUFF BOX FINISHER: PT TO ROOM FROM [facility]
--- NOTE | 2019-01-27 10:40 | NUR ---
AT BEDSIDE. PT IS HERE FOR MEDICATION ADJUSTMENT. SHE STATES "I JUST CAN'T DO A MEDICATION ADJUSTMENT ON MY OWN, I THINK I NEED INPATIENT. I REALLY WANT TO GO BACK TO [place]" WHEN ASKED ABOUT SUICIDE, PT STATES "YES, IF I GO HOME TODAY, THERE IS A CHANCE THAT I WILL TRY TO HURT MYSELF". MD NOTIFIED.
[2019-01-27 10:43] VITALS: BP 140/81
--- NOTE | 2019-01-27 10:45 | NUR ---
POC DISCUSSED WITH CM. I REPORTED TO CM THE SUICIDAL COMMENT THAT PT HAD MADE EARLIER.
--- NOTE | 2019-01-27 11:01 | NUR ---
SPOKE WITH DR WHITAKER, INFORMED HIM THAT PT STATED "IF I GO HOME TODAY IT'S POSSIBLE I WILL HARM MYSELF". JULIANNE HAS ORDERED A TELE PSYCH. CHARGE NURSE INFORMED OF SITUATION, SITTER WITHIN EYESIGHT. ROOM SECURED. ALL BELONGINGS REMOVED.
--- NOTE | 2019-01-27 11:58 | NUR ---
PT BELONGINGS ARE BEING STORED IN A LOCKED STORAGE UNIT. PT REQUESTED TO USE THE RESTROOM, PT TAKEN TO RESTROOM. PT IS REQUESTING ATIVAN, ALTERNATIVE COPING STRATEGIES DISCUSSED WITH PT AND PT VERBALIZED UNDERSTANDING. PT IS EXHIBITING EXTREMELY MANIPULATIVE BEHAVIOR. PT GIVING ME EXCESSIVE COMPLIMENTS AND TELLING ME THAT "YOU ARE MY FAVORITE NURSE, OH I JUST LOVE YOU SO MUCH, YOU ARE THE BEST NURSE I'VE EVER HAD. I DIDN'T LIKE HOW THE DR TALKED TO ME BUT I CAN TELL THAT YOU ARE ON MY SIDE" I HAVE DISCUSSED MY ROLE HER RN AND ATTEMPTED TO SET THERAPUTIC BOUNDRIES SO SHE IS NOT CONFUSED REGARDING THE PT/CAREGIVER RELATIONSHIP. PT SEEMS LIKE SHE WILL NEED THIS DISCUSSION REPEATED MULTIPLE TIMES.
--- NOTE | 2019-01-27 12:27 | NUR ---
Meal tray ordered for pt per request.
--- NOTE | 2019-01-27 13:00 | NUR ---
PT PROVIDED WITH A LUNCH TRAY AND WATER FOR HYDRATION. PT APPEARS CALM AND CONTENT. PT WAS ASKING QUESTIONS REGARDING POC, SO I WAS EXPLAINING THE POSSIBLE OUTCOMES OF HER POC. DURING THE DISCUSSION, WHEN I BROUGHT UP THE SUICIDAL COMMENT SHE HAD MADE EARLIER, SHE STATED, "OH HONEY, I DIDN'T MEAN THAT I WAS ACTUALLY GOING TO DO ANYTHING TO HARM MYSELF, I WAS JUST FEELING DEPRESSED. I HAVE A PLAN IN PLACE, I AM GOING TO GO LIVE WITH MY BOYFRIEND SO I WILL BE FINE". I EXPLAINED TO HER THAT WE TAKE THOSE TYPES OF COMMENTS VERY SERIOUSLY AND WE MUST TREAT IT AN SI RISK, UNTIL PROVEN OTHERWISE. I TOLD HER THAT SHE WOULD HAVE A TELE PSYCH EVAL AND WILL KNOW MORE AFTER WE GET THE TELE PSYCH MD RECOMMENDATION.
--- NOTE | 2019-01-27 13:36 | NUR ---
TELE PSYCH REP (CHRIS) CALLED AND IS CURRENTLY DOING AN EQUIPMENT TEST IN PREPERATION FOR THE DR TO CONSULT. DOC BOX IS AT BEDSIDE, PT AWARE OF POC.
--- NOTE | 2019-01-27 13:52 | NUR ---
DR. TAVAREZ CALLED TO GET REPORT. I GAVE REPORT AND THE TELE PSYCH CONSULT IS CURRENTLY IN PROGRESS.
--- NOTE | 2019-01-27 14:39 | NUR ---
TELE PSYCH CONSULT COMPLETE. DR PRITCHARD CALLED ME AND IS RECOMMENDING THAT PT BE REMOVED FROM HOLD AND SENT HOME WITH THE FOLLOWING ORDERS: 1 DOSE OF KLONOPIN 0.5MG PO NOW 1 PRESCRIPTION OF ZOLOFT, 50MG PO TABS, 7 IN TOTAL. I REPORTED THIS INFORMATION TO DR SÁNCHEZ. PT IS AGREEABLE TO POC.
== END 2019-01-27 15:02 | disposition home or self-care (01) ==
LOC: ED 10:52
DX: F20.1 Disorganized schizophrenia (principal); I50.9 Heart failure, unspecified; F31.9 Bipolar disorder, unspecified; F41.1 Generalized anxiety disorder; Z90.710 Acquired absence of both cervix and uterus
CPT/HCPCS: 99284

== ENCOUNTER 2020-02-04 18:19 | Emergency (ER) | payer MEDICARE, MEDICAID ==
[~2020-02-04] VITALS: Ht 170.2 cm; Wt 85.0 kg
[~2020-02-04 18:19] MED LIST changes: +OXYB5TAB10 PO; -OXYB5TAB7 PO
--- NOTE | 2020-02-04 18:30 | NUR ---
THIS IS A 59 YO F BIB EMS AFTER CRISIS HOTLINE CALLED THEM TO [facility]IGH PRESSURE OPERATOR PT. PT REPORTS SI W/ NO PLAN. HAS PSYCHIATRIST APT IN 2 WEEKS AND DOESNT BELIEVE SHE WILL MAKE IT TIL THEN. PT TAKING CURRENT PRESCRIBED MEDS BUT FEEL THEY ARE NO LONGER EFFECTIVE. HX: SCHITZOPHRENIA, ANXIETY, DEPRESSION, SA. PT BELONGINGS REMOVED AND PLACED IN SAFE KEEPING. GARAGE DOORS DOWN, SITTER OUTSIDE ROOM FOR SAFETY. VSDeanna, KELSIE. PT REPORTS SHE IS UNABLE TO PROVIDE URINE SAMPLE AT THIS TIME, PROVIDED WATER. AT BEDSIDE FOR ED EVAL.
--- NOTE | 2020-02-04 18:45 | NUR ---
TELEPHONE CALL TO TEOFILO MARCELO PTS BROTHER [phone] PER PTS REQUEST. UPDATED ON PTS STATUS, NO FURTHER QUESTIONS. WOULD LIKE PT TO CALL HIM W/ UPDATE IF SHE GETS TRANSFERED.
[2020-02-04 19:00] LABS: BASOPHILS # (AUTO) 0.01 x10^3/uL (0-0.1); BASOPHILS % (AUTO) 0 % (0-1); EOSINOPHILS # (AUTO) 0.02 x10^3/uL (0-0.4); EOSINOPHILS % (AUTO) 0 % (1-7); LYMPHOCYTES # (AUTO) 1.26 x10^3/uL (1-3.4); LYMPHOCYTES % (AUTO) 14 % (22-44); MD NO; MEAN CORPUSCULAR HEMOGLOBIN 30.4 pg (27.0-34.8); MEAN CORPUSCULAR HGB CONC 33.1 g/dL (32.4-35.8); MEAN CORPUSCULAR VOLUME 91.7 fL (80-100); MEAN PLATELET VOLUME 7.2 fL (7.4-10.4); MONOCYTES # (AUTO) 0.63 x10^3/uL (0.2-0.8); MONOCYTES % (AUTO) 7 % (2-9); NEUTROPHILS # (AUTO) 6.85 x10^3/uL (1.8-6.8); NEUTROPHILS % (AUTO) 78 % (42-75); PLATELET COUNT 311 x10^3/uL (130-400); RED BLOOD COUNT 4.92 x10^6/uL (3.82-5.3); RED CELL DISTRIBUTION WIDTH 13.3 % (9.6-15.2)
--- NOTE | 2020-02-04 19:00 | NUR ---
REPORT FROM GLYNN ROWE
[2020-02-04 19:12] LABS: ALBUMIN 3.9 g/dL (3.4-5.0); ANION GAP 5 mmol/L (5-15); CALCIUM 8.9 mg/dL (8.5-10.1); CHLORIDE 111 mmol/L (98-107); CREATININE 0.69 mg/dL (0.55-1.02)
[2020-02-04 19:13] LABS: SALICYLATE LEVEL < 1.7 mg/dL (2.8-20.0)
[2020-02-04] MEDS ORDERED: DIPHENHYDRAMINE 25 MG CAPSULE ONE (19:41)
[2020-02-04] MEDS ORDERED: BUSPIRONE 5 MG TABLET PO ONE ×2 (20:00)
[2020-02-04] MEDS ORDERED: DIPHENHYDRAMINE 25 MG CAPSULE PO ONE (20:00)
[2020-02-04 20:18] LABS: AMPHETAMINE SCREEN, URINE Negative (Negative); BARBITURATE SCREEN, URINE Negative (Negative); BENZODIAZEPINE SCREEN, URINE Negative (Negative); CANNABINOID SCREEN, URINE Negative (Negative); COCAINE SCREEN, URINE Negative (Negative); METHADONE SCREEN, URINE Negative (Negative); OPIATE SCREEN, URINE Negative (Negative)
--- NOTE | 2020-02-04 20:29 | NUR ---
PT PROVIDED FULL MEAL FROM [facility]
--- NOTE | 2020-02-04 20:53 | NUR ---
PT REQUESTING MEDICATIONS, ORDERS RECIEVED AND MEDICATED PER EMAR
[2020-02-04] MEDS ORDERED: BUSP10TA PO (23:16)
--- NOTE | 2020-02-04 23:16 | NUR ---
PT RESTING ON GURNEY, RESPIRATIONS EVEN AND UNLABORED. SITTER AT DOORWAY FOR FREQUENT CHECKS.
--- NOTE | 2020-02-04 23:48 | NUR ---
THROUGHPUT RN: PACKETS SENT TO [facility], [facility], [facility], [facility], AND [facility]. CONFIRMED WITH LORE @[facility], NIYA @[facility], AND SUSAN @[facility] THAT PACKET HAD BEEN RECEIVED. PER KRISTYN @[facility], PT DOES NOT HAVE ANY DAYS LEFT PER INSURANCE SO PT REFUSED. PER KELSI @[facility] PACKET WAS NOT RECEIVED SO ALL INFORMATION REFAXED.
--- NOTE | 2020-02-05 01:00 | NUR ---
REPORT TO GLYNN HARDWICK
--- NOTE | 2020-02-05 02:22 | NUR ---
pt resting in bed, with pt room si secure with sitter at pt door. pt has no needs at this time, loan underwriter will continue to monitor pt.
--- NOTE | 2020-02-05 04:48 | NUR ---
pt resting in bed, with pt room si secure with sitter at pt door. pt has no needs at this time, freelance copywriter will continue to monitor pt.
--- NOTE | 2020-02-05 05:15 | NUR ---
life underwriter attempted to switch pt to hospital bed. pt denied bed and said she rather wait till the morning and that she is sleeping now. hospital bed ready and sitting outside pt room.
--- NOTE | 2020-02-05 07:23 | NUR ---
PT RESTING CALMLY IN BED AT THIS TIME. NO STATED NEEDS. SITTER AT DOOR.
[2020-02-05 08:46] VITALS: BP 103/68
--- NOTE | 2020-02-05 08:49 | NUR ---
SITTER AT DOOR FOR OBS.
--- NOTE | 2020-02-05 08:49 | NUR ---
PT GIVEN MEAL TRAY. VSS, SEE CHARTED. PT REQUESTING SHOWER AND ROUTINE MEDS OF BENADRYL FOR ANXIETY AND BUSPAR. WILL SPEAK WITH ERP ABOUT MEDS.
--- NOTE | 2020-02-05 09:04 | NUR ---
PT RESTING CALMLY IN BED, SITTER AT DOOR.
--- NOTE | 2020-02-05 10:31 | NUR ---
PT UP TO SHOWER WITH TECH STAND BY FOR SAFETY. PT MEDICATED WITH ORDERED AM MED AND GIVEN 2 ORANGE JUICES PER PT REQUEST.
--- NOTE | 2020-02-05 11:29 | NUR ---
PT RESTING CALMLY IN BED. NO STATED NEEDS CURRENTLY. SITTER AT DOOR.
--- NOTE | 2020-02-05 12:24 | NUR ---
REPORT GIVEN TO BONITA ON [facility]
[2020-02-05] MEDS ORDERED: BUSPIRONE 10 MG TABLET PO SCH (16:00)
[2020-02-05] MEDS ORDERED: PALI9TAB PO (16:26)
[2020-02-05] MEDS ORDERED: SERT-237 PO (16:26)
== END 2020-02-05 12:55 ==
LOC: ED 18:47
DX: R45.851 Suicidal ideations (principal); I50.9 Heart failure, unspecified; F34.9 Persistent mood [affective] disorder, unspecified; Z90.710 Acquired absence of both cervix and uterus
CPT/HCPCS: 36415; 80048; 80307; 82040; 85025; 99285; Q0163

== ENCOUNTER 2020-02-05 11:00 | Inpatient (IN) | payer MEDICARE, MEDICAID ==
[~2020-02-05] VITALS: Ht 170.2 cm; Wt 83.5 kg
[~2020-02-05 11:00] MED LIST changes: +BUSP10TA PO
[2020-02-05] MEDS ORDERED: ONDANSETRON ODT 4 MG PO PRN (11:30)
[2020-02-05] MEDS ORDERED: BISACODYL 10 MG SUPP PR PRN (11:30)
[2020-02-05] MEDS ORDERED: DOCUSATE 100 MG CAPSULE PO PRN (11:30)
[2020-02-05] MEDS ORDERED: PLEASE ENTER HEIGHT AND WEIGHT MC SCH (14:00)
[2020-02-05] MEDS ORDERED: DIPHENHYDRAMINE 50 MG CAPSULE PO PRN (14:00)
[2020-02-05 14:45] VITALS: BP 109/75
[2020-02-05] MEDS: PALIPERIDONE 3 MG TAB.ER.24 PO SCH (15:39)
[2020-02-05] MEDS: SERTRALINE 50MG TABLET PO SCH (15:39)
[2020-02-05] MEDS: BUSPIRONE 10 MG TABLET PO SCH ×2 (15:39→20:22)
[2020-02-05] MEDS: ACETAMINOPHEN 325 MG TABLET PO PRN (15:40)
[2020-02-05] MEDS ORDERED: PALI9TAB PO (16:26)
[2020-02-05] MEDS ORDERED: SERT-237 PO (16:26)
[2020-02-05 19:54] VITALS: BP 120/78
[2020-02-05 20:54] LABS: MICROSCOPIC AUTO
[2020-02-06 07:34] VITALS: BP 100/66
[2020-02-06] MEDS ORDERED: PALIPERIDONE 6 MG TAB.ER.24 PO SCH (09:00)
[2020-02-06] MEDS ORDERED: SERTRALINE 50MG TABLET PO SCH (09:00)
[2020-02-06] MEDS: PALIPERIDONE 3 MG TAB.ER.24 PO SCH (09:10)
[2020-02-06] MEDS: BUSPIRONE 10 MG TABLET PO SCH ×3 (09:10→20:39)
[2020-02-06] MEDS: SERTRALINE 50MG TABLET PO SCH (09:10)
[2020-02-06 14:53] LABS: CHOL/HDL RATIO 3.9; FREE T4 (FREE THYROXINE) 1.08 ng/dL (0.76-1.46); LDL/HDL RATIO 2.4 (0.5-3.0)
[2020-02-06 19:22] VITALS: BP 105/71
[2020-02-06] MEDS: DIPHENHYDRAMINE 25 MG CAPSULE PO PRN (20:43)
[2020-02-06] MEDS: POLYETHYLENE GLYCOL 17 GM PACKET PO PRN (20:48)
[2020-02-07 07:30] VITALS: BP 98/67
[2020-02-07] MEDS: BUSPIRONE 10 MG TABLET PO SCH ×3 (08:09→20:49)
[2020-02-07] MEDS: PALIPERIDONE 3 MG TAB.ER.24 PO SCH (08:09)
[2020-02-07] MEDS: SERTRALINE 50MG TABLET PO SCH (08:09)
[2020-02-07 19:24] VITALS: BP 115/76
[2020-02-07] MEDS: DIPHENHYDRAMINE 25 MG CAPSULE PO PRN (20:49)
[2020-02-08 07:28] VITALS: BP 115/80
[2020-02-08] MEDS: BUSPIRONE 10 MG TABLET PO SCH ×3 (08:24→20:08)
[2020-02-08] MEDS: PALIPERIDONE 3 MG TAB.ER.24 PO SCH (08:24)
[2020-02-08] MEDS: SERTRALINE 50MG TABLET PO SCH (08:26)
[2020-02-08 19:43] VITALS: BP 109/70
[2020-02-08] MEDS: ACETAMINOPHEN 325 MG TABLET PO PRN (20:07)
[2020-02-08] MEDS: DIPHENHYDRAMINE 25 MG CAPSULE PO PRN (20:08)
[2020-02-09 07:34] VITALS: BP 116/78
[2020-02-09] MEDS: BUSPIRONE 10 MG TABLET PO SCH ×3 (08:38→20:22)
[2020-02-09] MEDS: SERTRALINE 50MG TABLET PO SCH (08:40)
[2020-02-09] MEDS: PALIPERIDONE 3 MG TAB.ER.24 PO SCH (08:40)
[2020-02-09] MEDS: DIPHENHYDRAMINE 25 MG CAPSULE PO PRN ×2 (08:40→18:40)
[2020-02-09 20:16] VITALS: BP 117/79
[2020-02-10 07:35] VITALS: BP 108/71
[2020-02-10] MEDS: BUSPIRONE 10 MG TABLET PO SCH ×3 (08:47→20:19)
[2020-02-10] MEDS: PALIPERIDONE 3 MG TAB.ER.24 PO SCH (08:48)
[2020-02-10] MEDS: SERTRALINE 50MG TABLET PO SCH (08:48)
[2020-02-10] MEDS: DIPHENHYDRAMINE 25 MG CAPSULE PO PRN ×2 (08:58→20:19)
[2020-02-10 19:32] VITALS: BP 109/76
[2020-02-11 06:35] VITALS: BP 105/70
[2020-02-11] MEDS: PALIPERIDONE 3 MG TAB.ER.24 PO SCH (10:59)
[2020-02-11] MEDS: SERTRALINE 50MG TABLET PO SCH (10:59)
[2020-02-11] MEDS: BUSPIRONE 10 MG TABLET PO SCH ×3 (10:59→20:46)
[2020-02-11] MEDS: DIPHENHYDRAMINE 25 MG CAPSULE PO PRN ×2 (11:07→20:46)
[2020-02-11] MEDS ORDERED: PALIPERIDONE PALMITATE 156 MG/ML IM ONE (15:00)
[2020-02-11 19:43] VITALS: BP 135/88
[2020-02-11] MEDS: ACETAMINOPHEN 325 MG TABLET PO PRN (20:46)
[2020-02-12 07:00] VITALS: BP 117/75
[2020-02-12] MEDS: SERTRALINE 50MG TABLET PO SCH (09:14)
[2020-02-12] MEDS: BUSPIRONE 10 MG TABLET PO SCH ×3 (09:14→20:14)
[2020-02-12] MEDS: PALIPERIDONE 3 MG TAB.ER.24 PO SCH (09:15)
[2020-02-12] MEDS: POLYETHYLENE GLYCOL 17 GM PACKET PO PRN (18:51)
[2020-02-12 19:14] VITALS: BP 86/63
[2020-02-12] MEDS: DIPHENHYDRAMINE 25 MG CAPSULE PO PRN (20:14)
[2020-02-13 05:47] VITALS: BP 115/64
[2020-02-13 07:00] VITALS: BP 101/68
[2020-02-13] MEDS: BUSPIRONE 10 MG TABLET PO SCH ×3 (10:10→20:35)
[2020-02-13] MEDS: SERTRALINE 50MG TABLET PO SCH (10:10)
[2020-02-13] MEDS: PALIPERIDONE 3 MG TAB.ER.24 PO SCH (10:26)
[2020-02-13 19:17] VITALS: BP 114/71
[2020-02-13] MEDS: DIPHENHYDRAMINE 25 MG CAPSULE PO PRN (20:37)
[2020-02-14 07:58] VITALS: BP 103/66
[2020-02-14] MEDS: BUSPIRONE 10 MG TABLET PO SCH ×3 (08:13→20:46)
[2020-02-14] MEDS: SERTRALINE 50MG TABLET PO SCH (08:13)
[2020-02-14] MEDS: PALIPERIDONE 3 MG TAB.ER.24 PO SCH (08:13)
[2020-02-14 19:58] VITALS: BP 116/75
[2020-02-14] MEDS: DIPHENHYDRAMINE 25 MG CAPSULE PO PRN (20:46)
[2020-02-15 07:39] VITALS: BP 103/71
[2020-02-15] MEDS: BUSPIRONE 10 MG TABLET PO SCH ×3 (09:24→20:33)
[2020-02-15] MEDS: SERTRALINE 50MG TABLET PO SCH (09:26)
[2020-02-15] MEDS: PALIPERIDONE 3 MG TAB.ER.24 PO SCH (09:28)
[2020-02-15] MEDS: DIPHENHYDRAMINE 25 MG CAPSULE PO PRN ×2 (13:11→20:33)
[2020-02-15 19:33] VITALS: BP 107/67
[2020-02-16 07:46] VITALS: BP 110/77
[2020-02-16] MEDS: BUSPIRONE 10 MG TABLET PO SCH ×3 (08:31→19:54)
[2020-02-16] MEDS: SERTRALINE 50MG TABLET PO SCH (08:32)
[2020-02-16] MEDS: PALIPERIDONE 3 MG TAB.ER.24 PO SCH (08:32)
[2020-02-16] MEDS ORDERED: PALI3TAB11 PO (11:56)
[2020-02-16] MEDS ORDERED: BUSP10TA PO (11:56)
[2020-02-16] MEDS ORDERED: SERT50TA28 PO (11:56)
[2020-02-16] MEDS: DIPHENHYDRAMINE 25 MG CAPSULE PO PRN ×2 (16:27→19:55)
[2020-02-16 19:43] VITALS: BP 106/71
[2020-02-17 07:00] VITALS: BP 106/71
[2020-02-17] MEDS: BUSPIRONE 10 MG TABLET PO SCH (08:21)
[2020-02-17] MEDS: PALIPERIDONE 3 MG TAB.ER.24 PO SCH (08:21)
[2020-02-17] MEDS: DIPHENHYDRAMINE 25 MG CAPSULE PO PRN (08:21)
[2020-02-17] MEDS: SERTRALINE 50MG TABLET PO SCH (08:23)
[2020-03-25] MEDS ORDERED: PALI78DI IM (11:16)
[2020-03-25] MEDS ORDERED: HALO5TAB5 PO (11:16)
== END 2020-02-17 09:00 | disposition home or self-care (01) | DRG 885 ==
LOC: 3E 13:00
PROVIDERS: ADMIT Psychiatry & Neurology Psychosomatic Medicine; ATTEND Psychiatry & Neurology Psychosomatic Medicine
DX: F25.0 Schizoaffective disorder, bipolar type (principal); R45.851 Suicidal ideations; F41.1 Generalized anxiety disorder; M19.90 Unspecified osteoarthritis, unspecified site; N95.1 Menopausal and female climacteric states; Z79.899 Other long term (current) drug therapy; Z85.42 Personal history of malignant neoplasm of other parts of uterus; Z90.710 Acquired absence of both cervix and uterus; Z20.828 Contact with and (suspected) exposure to other viral communicable diseases; Z88.2 Allergy status to sulfonamides; Z88.8 Allergy status to other drugs, medicaments and biological substances; Z88.1 Allergy status to other antibiotic agents; Z88.5 Allergy status to narcotic agent
CPT/HCPCS: 36415; 71045; 80048; 80061; 80307; 81001; 82040; 82140; 84439; 84443; 85025; 86480; 87086; 87635; 93005; 99285; J2426; Q0163